=== PATIENT | male | born 1990 | race Caucasian/White ===

== ENCOUNTER 2019-02-03 09:33 | Emergency (ER) | payer BC ==
[~2019-02-03] VITALS: Ht 195.6 cm; Wt 125.0 kg
[~2019-02-03 09:33] MED LIST: ACET-2615 PO; CYCL-1 PO; HYDR-3965 PO; IBUP-1984 PO
[2019-02-03 09:48] VITALS: BP 149/96
[2019-02-03] MEDS ORDERED: cyclobenzaprine 10mg tablet PO ONE (11:05)
== END 2019-02-03 11:38 | disposition home or self-care (01) ==
LOC: ER 09:34
DX: G89.29 Other chronic pain (principal); M54.5 Low back pain; Z79.899 Other long term (current) drug therapy
CPT/HCPCS: 99282